=== PATIENT | female | born 1965 | race Caucasian/White ===

== ENCOUNTER 2018-11-08 21:28 | Emergency (ER) | payer SELFPAY ==
[~2018-11-08] VITALS: Ht 170.2 cm; Wt 60.0 kg
[~2018-11-08 21:28] MED LIST: ASPI-496 PO; OXYC5TAB2 PO
--- NOTE | 2018-11-08 21:33 | NUR ---
EKG DONE ON ARRIVAL.
[2018-11-08 21:34] VITALS: BP 157/94
--- NOTE | 2018-11-08 21:45 | NUR ---
pt biba for etoh intoxication, non-ambulatory, report received from ems. pt's HR station captain 150s, sinus tach. ekg completed by edt on arrival, pt seen and examined by edmd gordon. all monitors in place, pt is sinus tach rate 130s on electronic device monitor, no ectopy. report given at bedside to DEBORA Escoto. call light in reach. bed locked and in lowest position.
[2018-11-08 21:52] LABS: BASOPHILS % (AUTO) 0 % (0-1); EOSINOPHILS # (AUTO) 0.13 x10^3/uL (0-0.4); EOSINOPHILS % (AUTO) 2 % (1-7); LYMPHOCYTES # (AUTO) 2.09 x10^3/uL (1-3.4); LYMPHOCYTES % (AUTO) 31 % (22-44); MD NO; MEAN CORPUSCULAR HEMOGLOBIN 24.8 pg (27.0-34.8); MEAN CORPUSCULAR HGB CONC 32.3 g/dL (32.4-35.8); MEAN CORPUSCULAR VOLUME 76.8 fL (80-100); MEAN PLATELET VOLUME 8.3 fL (7.4-10.4); MONOCYTES % (AUTO) 6 % (2-9); NEUTROPHILS # (AUTO) 4.09 x10^3/uL (1.8-6.8); NEUTROPHILS % (AUTO) 61 % (42-75); PLATELET COUNT 374 x10^3/uL (130-400); RED BLOOD COUNT 4.72 x10^6/uL (3.82-5.3); RED CELL DISTRIBUTION WIDTH 20.4 % (9.6-15.2)
--- NOTE | 2018-11-08 21:53 | NUR ---
PT BEDSIDE REPORT FROM LUCIA CAZARES. THIS RN TO ASSUME CARE OF PT. JERRICAN. NO IMMEDIATE NEEDS FROM PT. AWAITING LAB DRAW.
--- NOTE | 2018-11-08 21:55 | NUR ---
report given to DEBORA Escoto at bedside.
[2018-11-08 22:01] LABS: ALANINE AMINOTRANSFERASE 31 U/L (12-78); ALBUMIN 3.5 g/dL (3.4-5.0); ANION GAP 9 mmol/L (5-15); CALCIUM 8.4 mg/dL (8.5-10.1); CHLORIDE 109 mmol/L (98-107); CREATININE 0.57 mg/dL (0.55-1.02)
[2018-11-08 22:04] LABS: ALKALINE PHOSPHATASE 122 U/L (45-117); BILIRUBIN,TOTAL 0.2 mg/dL (0.2-1.0); TOTAL PROTEIN 7.7 g/dL (6.4-8.2)
--- NOTE | 2018-11-08 22:44 | NUR ---
PT GIVEN MULTIPLE GLASSES OF WATER. STATING "I HAVE BEEN CALLING AND NO ONE IS GIVING ME WATER."
--- NOTE | 2018-11-08 23:09 | NUR ---
PT ASSISTED TO RR AGAIN AT THIS TIME. AMB W/ STEADY GAIT.
--- NOTE | 2018-11-08 23:25 | NUR ---
PT UP TO NURSE STATION FULLY CLOTHED W/ ALL MONITORING OUT STATING SHE IS READY TO GO HOME. MD AWARE AND AWAITING D/C PAPERWORK. IV TAKEN OUT. TAXI VOUCHER GIVEN TO PT.
== END 2018-11-08 23:33 | disposition home or self-care (01) ==
LOC: ED 22:49
DX: F10.120 Alcohol abuse with intoxication, uncomplicated (principal); Z72.9 Problem related to lifestyle, unspecified
CPT/HCPCS: 36415; 80053; 80307; 85025; 93005; 99284